=== PATIENT | male | born 1965 | race Two or more races ===

== ENCOUNTER 2024-08-04 10:04 | Emergency (ER) | payer OTHER, MEDICARE, MEDICAID ==
[~2024-08-04] VITALS: Ht 175.3 cm; Wt 75.0 kg
[2024-08-04 10:08] VITALS: O2SAT 96
[2024-08-04 10:29] LABS: BASOPHILS % 0.6 % (0.0-2.0); DIFFERENTIAL COMMENT 0; EOSINOPHILS % 0.2 % (0.0-5.0); HEMATOCRIT. 48.4 % (42.0-52.0); HEMOGLOBIN. 16.4 g/dL (14.0-18.0); LYMPHOCYTES % 13.4 % (20.0-50.0); MEAN CORPUSCULAR HEMOGLOBIN 34.4 pg (28.0-32.0); MEAN CORPUSCULAR HGB CONC 33.8 g/dL (31.0-37.0); MEAN CORPUSCULAR VOLUME 101.7 fL (80.0-94.0); MEAN PLATELET VOLUME 10.5 fl (7.4-10.4); MONOCYTES % 5.5 % (2.0-8.0); NEUTROPHILS % 80.3 % (40.0-76.0); PLATELET 71 x1000/uL (130-400); RED BLOOD CELL COUNT 4.76 mill/uL (4.7-6.1)
[2024-08-04 10:35] LABS: CHLORIDE 108 mEq/L (98-107); POTASSIUM 4.2 mEq/L (3.5-5.1); SODIUM 134 mEq/L (136-145)
[2024-08-04 10:36] LABS: CALCIUM 9.2 mg/dL (8.7-10.4); CARBON DIOXIDE 14 mEq/L (21-32)
[2024-08-04 10:41] LABS: CREATININE 1.1 mg/dL (0.6-1.3); INR 1.1; PROTHROMBIN TIME 11.9 sec (9.6-11.0)
[2024-08-04 10:42] LABS: GLUCOSE 221 mg/dL (70-105); UREA NITROGEN BLOOD 15 mg/dL (9-23)
[2024-08-04] MEDS: MORPHINE SULFATE 4 MG/ML INJ (FOR IV/IM USE) IV ONE ×3 (10:55→16:46)
[2024-08-04] MEDS ORDERED: HEPARIN 25,000 UNITS PREMIX 250 ML IV PRN (12:45)
[2024-08-04] MEDS ORDERED: HEPARIN 5000 UNITS/ML VIAL IV PRN ×2 (12:45)
[2024-08-04] MEDS: HEPARIN 5000 UNITS/ML VIAL IV SCH ×2 (12:45→14:40)
[2024-08-04] MEDS: HEPARIN 25,000 UNITS PREMIX 250 ML IV SCH (14:56)
[2024-08-04 16:45] VITALS: TEMP 36.89184; O2SAT 95
[2024-08-04 16:46] VITALS: BP 145/65; PULSE 77; RESP 18
== END 2024-08-04 17:24 | disposition short-term general hospital (02) ==
LOC: ER 10:04 → CANBEDREQ 15:03 → ER 17:24
DX: I74.09 Other arterial embolism and thrombosis of abdominal aorta (principal); I74.5 Embolism and thrombosis of iliac artery; I73.9 Peripheral vascular disease, unspecified; E11.9 Type 2 diabetes mellitus without complications; Z21 Asymptomatic human immunodeficiency virus [HIV] infection status
CPT/HCPCS: 80048; 85025; 85610; 85730; 36415; 75635; 96365; 96375; 96376; 99291; J1644 ×2; J2270; Z7610